=== PATIENT | female | born 1980 | race Caucasian/White ===

== ENCOUNTER 2020-07-22 17:49 | Inpatient (IN) | payer OTHER ==
[~2020-07-22] VITALS: Ht 165.1 cm; Wt 90.7 kg
[2020-07-22] MEDS ORDERED: OMEP20ER PO (19:24)
[2020-07-22 20:43] LABS: Influenza A, PCR NEGATIVE (NEGATIVE); Influenza B, PCR NEGATIVE (NEGATIVE); Resp Syncytial Virus, PCR NEGATIVE (NEGATIVE); SARS-Cov-2 (COVID-19) PCR, MMC NEGATIVE (NEGATIVE)
[2020-07-22] MEDS ORDERED: CYCL10 PO (22:18)
[2020-07-22] MEDS ORDERED: IBU800 M1 PO (22:18)
[2020-07-22] MEDS ORDERED: Flonase 0.05% N16 GM (22:21)
[2020-07-22] MEDS ORDERED: ZYRTEC10 M2 PO (22:27)
--- NOTE | 2020-07-22 22:42 | NUR ---
REPORT RECIEVED FROM JAIRO RN AT RN AT 2215. PT TO ROOM 216.
[2020-07-22] MEDS ORDERED: Atarax10 MG PO (23:57)
[2020-07-22] MEDS ORDERED: Atarax10 MG (23:57)
--- NOTE | 2020-07-23 03:37 | NUR ---
SHIFT SUMMARY AOX4. PT ARRIVED AT ROOM 216 AT 2304 FROM ED. PT CAME IN WITH FX ULNA/RADIUS, HAS SEEN BY DR. CHAND AT ED. SCHEDULED SURGERY AT 0730 THIS MORNING. PT REPORTS PAIN IS TOLERABLE 6/10. PAIN MANAGED WITH 5MG NORCO Q4 AND ELEVATION ON L ARM. PT HAS A SOFT CAST AND DANA WRAPPED ON LEFT ARM, CDI. PT HAD SNACKS AT 2304. TOLERATING PO INTAKE WELL DENIES N/V. NPO AFTER MIDNIGHT. PT WAS ANXIOUS, REQUESTED ATARAX 10MG PRN TO DR. CHAND. MEDICATION ORDERED AND GIVEN TO PT BY PO. ANIETY HAS IMPORVED. PT HAS 20G IV ON R WRIST, LR INFUSING. SURGICAL PACKET ON PT'S CHART, AND REVIEWED. SHE IS INDEPENDENT IN ROOM. CONT BIOX IN PLACED. LUNG SOUNDS ARE CLEAR. SHE IS ON ROOM AIR. CALL LIGHT WITHIN REACH.
[2020-07-23 04:50] LABS: BASOPHILS ABSOLUTE AUTO 0.04 K/mm3 (0.00-0.23); BASOPHILS PERCENT AUTO 0 % (0-2); EOSINOPHILS ABSOLUTE AUTO 0.04 K/mm3 (0.00-0.68); EOSINOPHILS PERCENT AUTO 0 % (0-6); Hematocrit 37.9 % (33.0-51.0); Hemoglobin 12.9 g/dL (11.5-16.0); IMMATURE GRAN ABSOLUTE AUTO 0.04 K/mm3 (0.00-0.10); IMMATURE GRAN PERCENT AUTO 0 % (0-1); LYMPHOCYTES ABSOLUTE AUTO 1.67 K/mm3 (0.84-5.20); LYMPHOCYTES PERCENT AUTO 18 % (21-46); MONOCYTES ABSOLUTE AUTO 0.91 K/mm3 (0.16-1.47); MONOCYTES PERCENT AUTO 10 % (4-13); Mean Corpuscular HGB 31.5 pg (26.0-34.0); Mean Corpuscular Volume 93 fL (80-100); Mean Platelet Volume 9.3 fL (9.1-12.4); NEUTROPHILS ABSOLUTE AUTO 6.85 K/mm3 (1.96-9.15); NEUTROPHILS PERCENT AUTO 72 % (41-73); Platelet Count 346 K/mm3 (150-400); RDW Coefficient Variation 12.9 % (11.7-14.2); RDW Standard Deviation 43.8 fL (35.1-46.3); Red Blood Cell Count 4.09 M/mm3 (3.80-5.20); White Blood Cell Count 9.55 K/mm3 (4.00-11.30)
[2020-07-23 05:18] LABS: Anion Gap 7 mmol/L (6-16); Blood Urea Nitrogen 14 mg/dL (8-24); Bun/Creatinine Ratio 16.3 (12.0-20.0); CO2, Blood 25 mmol/L (21-32); Chloride, Blood 109 mmol/L (98-108); Creatinine, Blood 0.86 mg/dL (0.40-1.00); Glomerular Filtration Rate >60 (60-); Glucose, Blood 98 mg/dL (70-99); Potassium, Blood 3.7 mmol/L (3.5-5.5); Sodium, Blood 141 mmol/L (136-145)
--- NOTE | 2020-07-23 11:00 | NUR ---
DISCHARGE: PT LEFT AMA AT THIS TIME. PT WAS UPSET THAT SHE HAD A DELAYED SURGICAL TIME. DR CHAND CAME IN TO SPEAK WITH PATIENT. SHE STILL STATES THAT SHE WANTS TO LEAVE FOR ANOTHER HOSPITAL DESPITE BEING ABLE TO HAVE SURGERY HERE LATER IN THE AFTERNOON. PT IV DC'D AND IMAGES PUSHED TO SIGIFREDO BOYD PER PATIENT REQUEST. PT SIGNED AMA FORM AND LEFT AMBULATORY TO CAR WITH SISTER. EXPERIMENTAL WORKER AND DOCTOR NOTIFIED.
--- NOTE | 2020-07-23 11:12 | NUR ---
PT LEFT AMA, IV DC'D
== END 2020-07-23 11:00 | disposition home or self-care (01) | DRG 563 ==
LOC: ER 17:49 → SURS 22:28
PROVIDERS: Physician Assistant; ADMIT Orthopaedic Surgery
DX: S52.502B Unspecified fracture of the lower end of left radius, initial encounter for open fracture type I or II (principal); S52.602B Unspecified fracture of lower end of left ulna, initial encounter for open fracture type I or II; W00.0XXA Fall on same level due to ice and snow, initial encounter; Z20.822 Contact with and (suspected) exposure to COVID-19; Y92.9 Unspecified place or not applicable; F17.210 Nicotine dependence, cigarettes, uncomplicated
CPT/HCPCS: 0241U; 29125; 36415; 73080; 73090; 73100; 80048; 81025; 85025; 90714; 94762; 96365-59; 99284-25; A9270; J0690; J0696; J2250; J2704; J3010; J7120